=== PATIENT | female | born 1945 | race Caucasian/White ===

== ENCOUNTER 2016-12-30 06:14 | Day surgery (SDC) | payer MEDICARE, OTHER ==
[~2016-12-30] VITALS: Ht 152.4 cm; Wt 63.5 kg
[2016-12-30] VITALS (12 sets, daily range): BP systolic 126–147; BP diastolic 75–92
[~2016-12-30 06:14] MED LIST: cefOXitin 1gm/D5W 55ml IVPB ONE
[2016-12-30] MEDS ORDERED: METOPROLOL SUCC25 MG ORAL (07:17)
[2016-12-30] MEDS ORDERED: LR 1000ml 1,000 ML IVLG SCH (07:40)
--- NOTE | 2016-12-30 07:40 | Anethesia Preoperative Eval ---
Anesthesia Pre-op PMH/ROS General Date of Evaluation: Dec 30, 2016 Anesthesiologist: Skyler ASA Score: ASA 3 Mallampati Score Class I : Soft palate, uvula, fauces, pillars visible Class II: Soft palate, uvula, fauces visible Class III: Soft palate, base of uvula visible Class IV: Only hard plate visible Mallampati Classification: Class III Surgeon: Abiola Diagnosis: Postmenopausal bleeding Surgical Procedure: Hysteroscopy, D&C Anesthesia History: none Family History: no anesthesia problems Allergies: Coded Allergies: No Known Allergies (Unverified , 12/29/16) Medications: see eMAR Past Medical History Cardiovascular: Reports: HTN, Denies: CAD, [place], arrhythmia, other, valve dz Pulmonary: Reports: other - h/o left lung cancer s/p left lobectomy, Denies: COPD, DILAN, asthma Gastrointestinal/Genitourinary: Reports: GERD, other - uterine fibroids, Denies: CRI, ESRD Neurologic/Psychiatric: Denies: CVA, TIA, dementia, depression/anxiety, other Endocrine: Denies: DM, hypothyroidism, other, steroids HEENT: Reports: [place]W (L), [place] (R), Denies: cataract (L), cataract (R), glaucoma, other Hematology/Immune: Reports: other - left breast cancer s/p mastectomy, Denies: DVT, anemia, bleeding disorder Musculoskeletal/Integumentary: Reports: DJD, OA, Denies: DDD, RA, edema, other PSxH Narrative: parathyroid sx, left breast mastectomy, left lobectomy, bilateral breast implants Anesthesia Pre-op Phys. Exam Physician Exam Last Vital Signs Date Time Temp Pulse Resp B/P Pulse Ox O2 Delivery O2 Flow Rate FiO2 12/30/16 06:43 98.1 67 20 126/76 100 Room Air Constitutional: NAD Cardiovascular: RRR Respiratory: CTA Airway Exam Mallampati Score: Class III MO: limited ROM: limited Anesthesia Pre-op A/P Labs see chart Studies Pre-op Studies: EKG - sr Risk Assessment & Plan Assessment: ASA III Plan: GA Status Change Before Surgery: No Pre-Antibiotics Drug: Ancef 1g Given Within 1 Hr of Incision: Yes SAVANNAH GREENWOOD M.D. Dec 30, 2016 07:40
[2016-12-30] MEDS ORDERED: fentaNYL 100 mcg/2 mL IV PRN (07:45)
[2016-12-30] MEDS ORDERED: Propofol 10mg/ml 20ml IV ONE (07:45)
[2016-12-30] MEDS ORDERED: Lidocaine 1% MPF 10mg/ml 5ml ONE (07:45)
[2016-12-30] MEDS ORDERED: Sterile Water Irrig 1000ml IRRIG ONE (07:45)
[2016-12-30] MEDS ORDERED: Hydromorphone 0.5mg/0.5ml inj IVP PRN (07:45)
[2016-12-30] MEDS ORDERED: Dexamethasone 4mg/ml vial ONE (07:45)
[2016-12-30] MEDS ORDERED: DiphenhydrAMINE 50mg/ml Inj IVP PRN ×2 (07:45→08:00)
[2016-12-30] MEDS ORDERED: Zemuron 50mg/5ml Inj IV ONE (07:45)
[2016-12-30] MEDS ORDERED: LR 1000ml ONE (07:45)
[2016-12-30] MEDS ORDERED: fentaNYL 250mcg/5ml ONE (07:45)
[2016-12-30] MEDS ORDERED: NS Irrig 1000ml ONE (07:45)
--- NOTE | 2016-12-30 07:56 | Pre-Procedure Note/Attestation ---
Pre-Procedure Note/Attestation Complete Prior to Procedure Planned Procedure: not applicable Procedure Narrative: HYSTEROSCOPY DILATION AND CURETTAGE Indications for Procedure Pre-Operative Diagnosis: POSTMENOPAUSAL BLEEDING Attestation I attest that I discussed the nature of the procedure; its benefits; risks and complications; and alternatives (and the risks and benefits of such alternatives ), prior to the procedure, with the patient (or the patient's legal sales donor recruitment representative). I attest that, if there was a reasonable possibility of needing a blood transfusion, the patient (or the patient's legal sales donor recruitment representative) was given the [facility] standardized written summary, pursuant to the Chung [place]osh[place] Blood Safety Act ([place] Health and Safety Code # 1645, as amended). I attest that I re-evaluated the patient just prior to the surgery and that there has been no change in the patient's H&P, except as documented below: RADHA CELESTE Dec 30, 2016 07:56
[2016-12-30] MEDS ORDERED: Norco 5mg/325mg tab ORAL PRN (08:00)
[2016-12-30] MEDS ORDERED: Tylenol #3 tab (300mg/30mg) ORAL PRN (08:00)
[2016-12-30] MEDS ORDERED: D5 1/2NS 1,000 ML IV SCH (08:00)
[2016-12-30] MEDS ORDERED: HYDROmorphone 1mg/ml Carpuject SUBQ PRN (08:00)
[2016-12-30] MEDS ORDERED: Metoclopramide 10mg/2ml Inj IVP PRN (08:00)
--- NOTE | 2016-12-30 08:32 | Brief Operative Note ---
Immediate Post Operative Note Operative Note Pre-op Diagnosis: POSTMENOPAUSAL BLEEDING Procedure: dilation and hysteroscopy curettage Post-op Diagnosis: same stenotic os and atrophic endometrium Surgeon: claudio Anesthesiologist: lisa Anesthesia: general Specimen: yes Complications: none Condition: stable Estimated Blood Loss: minimal Drains: none Implant(s) used?: No RADHA CELESTE Dec 30, 2016 08:32
--- NOTE | 2016-12-30 08:50 | 48 Hour Post Anesthesia Eval ---
Post Anesthesia Evaluation Procedure: Hysteroscopy, D&C Date of Evaluation: Dec 30, 2016 Time of Evaluation: 09:40 Blood Pressure Systolic: 144 0: 82 Pulse Rate: 72 Respiratory Rate: 13 Temperature (Fahrenheit): 97.4 O2 Sat by Pulse Oximetry: 98 Airway: patent Nausea: No Vomiting: No Pain Intensity: 0 Hydration Status: adequate Cardiopulmonary Status: at baseline Mental Status/LOC: patient returned to baseline Post-Anesthesia Complications: 0 Follow-up care needed: ready to discharge SAVANNAH GREENWOOD M.D. Dec 30, 2016 08:50
--- NOTE | 2016-12-30 08:50 | Immediate Post-Op Evaluation ---
Immediate Post-Op Evalulation Immediate Post-Op Evalulation Procedure: Hysteroscopy, D&C Date of Evaluation: Dec 30, 2016 Time of Evaluation: 08:51 IV Fluids: 600 Blood Products: 0 Estimated Blood Loss: 25 Urinary Output: 0 Blood Pressure Systolic: 146 Blood Pressure Diastolic: 92 Pulse Rate: 74 Respiratory Rate: 16 O2 Sat by Pulse Oximetry: 100 Temperature (Fahrenheit): 97 Pain Score (1-10): 0 Nausea: No Vomiting: No Complications 0 Patient Status: awake, reacts, patent, none Hydration Status: adequate Drug: Ancef 1g Given Within 1 Hr of Incision: Yes Time Given: 08:05 SAVANNAH GREENWOOD M.D. Dec 30, 2016 08:50
--- NOTE | 2016-12-30 10:30 | Operative Note - Dictated ---
PREOPERATIVE DIAGNOSIS: 1. Postmenopausal bleeding. POSTOPERATIVE DIAGNOSES: 1. 2. Postmenopausal bleeding. 3. Atrophic endometrium. PROCEDURE: Dilation and curettage hysteroscopy. SURGEON: Aggie Culver M.D. SAUSAGE STUFFER: None. ANESTHESIOLOGIST: ANESTHESIA: General. PROCEDURE IN DETAIL: After ensuring informed consent, the patient was taken to the operating room, where weighted speculum was placed under vagina. Cervix was dilated and dilated. Hysteroscope was placed inside the uterine cavity, which was small, but bilateral tube ostia were observed. Endometrium appeared has atrophic. Hysteroscope was withdrawn and fractional curettage was performed. At the end of the procedure, ECC and EMC was pathology. All instruments were removed. Excellent hemostasis was assured. The patient was taken to the recovery area and extubated in stable condition. Aggie Culver M.D. DR: Jordan JOB#: [id number] CC:
== END 2016-12-30 10:35 | disposition home or self-care (01) ==
LOC: SUR 06:14
DX: N95.0 Postmenopausal bleeding (principal); N88.2 Stricture and stenosis of cervix uteri; N85.8 Other specified noninflammatory disorders of uterus; I10 Essential (primary) hypertension; K21.9 Gastro-esophageal reflux disease without esophagitis; H91.90 Unspecified hearing loss, unspecified ear; M19.90 Unspecified osteoarthritis, unspecified site; Z85.118 Personal history of other malignant neoplasm of bronchus and lung; Z85.3 Personal history of malignant neoplasm of breast; Z90.2 Acquired absence of lung [part of]; Z90.12 Acquired absence of left breast and nipple
CPT/HCPCS: 58558; J0690; J1100; J2405; J2704; J3010; J7120; 94003; 94150

== ENCOUNTER 2018-04-20 14:04 | Outpatient (CLI) | payer MEDICARE, OTHER ==
[~2018-04-20] VITALS: Ht 157.5 cm; Wt 70.3 kg
[~2018-04-20 14:04] MED LIST changes: +METOPROLOL SUCC25 MG ORAL; -cefOXitin 1gm/D5W 55ml IVPB ONE
[2018-04-20 15:21] VITALS: BP 139/62
[2018-04-20] MEDS ORDERED: DEXILANT60 MG ORAL (15:31)
--- NOTE | 2018-04-21 14:37 | GI Initial Consult Note ---
History of Present Illness General Date patient seen: Apr 21, 2018 Time patient seen: 14:29 Referring physician: ANNETTE Reason for Consultation: PANCREATIC CYST Present Illness HPI 73 year old female patient referred by Dr. Sesay for evaluation of pancreatic cyst as seen on recent imaging study. The patient presents with occasional abdominal pain, GERD, and occasional nausea without any vomiting. Denies any unintentional weight loss or changes in dietary habits. No signs of abuse or neglect. Patient is not fall risk. Stated she had EGD/colonoscopy performed by Dr. Himanshu bhakta in 2009. Home Meds Reported Medications Dexlansoprazole (Dexilant) 60 Mg Cap.bp, 60 MG ORAL DAILY, CAP 04/20/18 Metoprolol Succinate* (METOPROLOL SUCCINATE*) 25 Mg Tab.er.24h, 25 MG ORAL BID, TAB 12/30/16 Med list reviewed/reconciled: Yes Allergies: Coded Allergies: No Known Allergies (Unverified , 12/29/16) Patient History History Provided By: Patient, Medical Record PMH Narrative Lt lung CA melanoma Lt breast CA s/p surgery and chemo HTN kidney stones Past Surgical History:2009 Lt Breast CA 2018 Left lung ?lobectomy Family History Narrative Mother had both Breast and Lung CA. Social History: Denies: smoking, alcohol use, drug use, other Review of Systems All Other Systems: negative except mentioned in HPI Physical Exam Vital Signs Date Time Temp Pulse Resp B/P (MAP) Pulse Ox O2 Delivery O2 Flow Rate FiO2 04/20/18 15:21 98.1 68 16 139/62 88 Sp02 EP Interpretation: reviewed, normal General Appearance: well appearing, no apparent distress, alert Head: normocephalic EENT: PERRL/EOMI, normal ENT inspection Neck: supple Respiratory: normal breath sounds, no respiratory distress Cardiovascular: normal rate Gastrointestinal: normal inspection, non tender, soft, normal bowel sounds, non -distended Rectal: deferred Genitourinary: no CVA tenderness Musculoskeletal: normal inspection, back normal Neurologic: normal inspection, alert, oriented x3, responsive Psychiatric: normal inspection, judgement/insight normal, memory normal Skin: normal inspection, normal color, no rash, warm/dry, palpation normal, well hydrated Lymphatic: normal inspection, no adenopathy GI: Plan Problems: (1) Lung cancer (2) Breast CA (3) Melanoma (4) Kidney stone (5) Pancreatic cyst Plan EGD/EUS scheduled. - NPO @ [place] day prior procedure explained. plan for colonoscopy after EUS. Seen with Dr. Espino. Thank you for this patient referral. The patient was seen and examined at bedside and all new and available data was reviewed in the patients chart. I agree with the above findings, impression and plan. (Patient seen earlier today. Signature stamp does not reflect patient encounter time.). - MD [facility] Apr 21, 2018 14:37
== END 2018-04-20 14:34 | disposition home or self-care (01) ==
LOC: PAN 14:04
DX: K86.2 Cyst of pancreas (principal); K21.9 Gastro-esophageal reflux disease without esophagitis; R11.0 Nausea; C34.90 Malignant neoplasm of unspecified part of unspecified bronchus or lung; C50.919 Malignant neoplasm of unspecified site of unspecified female breast; C43.9 Malignant melanoma of skin, unspecified; N20.0 Calculus of kidney; I10 Essential (primary) hypertension
CPT/HCPCS: 99202

== ENCOUNTER 2018-05-05 07:14 | Day surgery (SDC) | payer MEDICARE, OTHER ==
[~2018-05-05] VITALS: Ht 157.5 cm; Wt 69.9 kg
[2018-05-05] VITALS (10 sets, daily range): BP systolic 114–137; BP diastolic 62–77
[~2018-05-05 07:14] MED LIST changes: +Atropine Inj 1mg/10ml Syr IV PRN; +DEXILANT60 MG ORAL; +DiphenhydrAMINE 50mg/ml Inj IVP PRN; +Midazolam 2mg/2ml Inj IVP PRN; +fentaNYL 100 mcg/2 mL IV PRN
--- NOTE | 2018-05-05 08:20 | Anethesia Preoperative Eval ---
Anesthesia Pre-op PMH/ROS General Date of Evaluation: May 05, 2018 Time of Evaluation: 07:53 Anesthesiologist: padmini ASA Score: ASA 3 Mallampati Score Class I : Soft palate, uvula, fauces, pillars visible Class II: Soft palate, uvula, fauces visible Class III: Soft palate, base of uvula visible Class IV: Only hard plate visible Mallampati Classification: Class III Surgeon: syeda Diagnosis: pancreatic cyst Surgical Procedure: egd/eus Anesthesia History: none Social History: smoking - nonsmoker Family History: no anesthesia problems Allergies: Coded Allergies: No Known Allergies (Unverified , 12/29/16) Medications: see eMAR Patient NPO?: Yes Past Medical History Cardiovascular: Reports: HTN Pulmonary: Reports: other - cancer Gastrointestinal/Genitourinary: Reports: GERD, other - pancreatic cyst HEENT: Reports: other - decreased hearing acuity Hematology/Immune: Reports: other - breast cancer Musculoskeletal/Integumentary: Reports: OA, other - melanoma PSxH Narrative: left lung lobectomy Anesthesia Pre-op Phys. Exam Physician Exam Last Vital Signs Date Time Temp Pulse Resp B/P (MAP) Pulse Ox O2 Delivery O2 Flow Rate FiO2 05/05/18 07:54 Room Air 05/05/18 07:50 97.9 65 18 118/75 100 Constitutional: NAD Neurologic: CN 2-12 intact, other - decreased hearing acuity Cardiovascular: RRR Respiratory: CTA Gastrointestinal: S/NT/ND Airway Exam Mallampati Score: Class II MO: full Neck: supple TMD: 2fb ROM: full Anesthesia Pre-op A/P Risk Assessment & Plan Assessment: asa3 Plan: mac Status Change Before Surgery: No Pre-Antibiotics Drug: Eloisa De Leon MD May 05, 2018 08:20
--- NOTE | 2018-05-05 08:40 | Short Stay Surgery H&P ---
History of Present Illness History of Present Illness Chief Complaint see recent office note HPI Edilberto Schroeder is a 73 year old female who was admitted on for PAIN Patient History Allergies: Coded Allergies: No Known Allergies (Unverified , 12/29/16) Medication History Scheduled Dexlansoprazole (Dexilant), 60 MG ORAL DAILY, (Reported) Metoprolol Succinate* (Metoprolol Succinate*), 25 MG ORAL BID, (Reported) Physical Exam Vital Signs Last Vital Signs Date Time Temp Pulse Resp B/P (MAP) Pulse Ox O2 Delivery O2 Flow Rate FiO2 05/05/18 07:54 Room Air 05/05/18 07:50 97.9 65 18 118/75 100 Plan Attestation Are the patient's medical conditions optimized for surgery? Kristopher Espino MD May 05, 2018 08:40
--- NOTE | 2018-05-05 08:40 | Pre-Procedure Note/Attestation ---
Pre-Procedure Note/Attestation Complete Prior to Procedure Planned Procedure: not applicable Procedure Narrative: egd/EUS Indications for Procedure Pre-Operative Diagnosis: pancreatic cyst Attestation I attest that I discussed the nature of the procedure; its benefits; risks and complications; and alternatives (and the risks and benefits of such alternatives ), prior to the procedure, with the patient (or the patient's legal patient access representative). I attest that, if there was a reasonable possibility of needing a blood transfusion, the patient (or the patient's legal patient access representative) was given the [facility] standardized written summary, pursuant to the [place]ung [place]osh[place] Blood Safety Act ([place] Health and Safety Code # 1645, as amended). I attest that I re-evaluated the patient just prior to the surgery and that there has been no change in the patient's H&P, except as documented below: Kristopher Espino MD May 05, 2018 08:40
--- NOTE | 2018-05-05 09:31 | Endoscopy Procedure Note ---
Endoscopy Procedure Note General Indication for Procedure: pancreatic cyst Procedures Performed: EGD, other - EUS Operative Findings/Diagnosis: same Specimen: yes Pt Tolerated Procedure Well: Yes Estimated Blood Loss: none Anesthesia Anesthesiologist: nidhi Anesthesia: MAC Inserted Devices Implant(s) used?: No GI Core Measures 50 yrs or older w/o bx or poly: Not Applicable 10yrs. F/U not recommended: Not Applicable Kristopher Espino MD May 05, 2018 09:30
--- NOTE | 2018-05-05 09:46 | Immediate Post-Op Evaluation ---
Immediate Post-Op Evalulation Immediate Post-Op Evalulation Procedure: egd/eus Date of Evaluation: May 05, 2018 Time of Evaluation: 09:35 IV Fluids: 450ml 0.9ns Blood Products: none Estimated Blood Loss: negligible Blood Pressure Systolic: 121 Blood Pressure Diastolic: 62 Pulse Rate: 63 Respiratory Rate: 18 O2 Sat by Pulse Oximetry: 100 Temperature (Fahrenheit): 97.6 Pain Score (1-10): 0 Nausea: No Vomiting: No Complications none Patient Status: awake, reacts, patent Hydration Status: adequate Drug: Eloisa De Leon MD May 05, 2018 09:46
--- NOTE | 2018-05-05 09:48 | 48 Hour Post Anesthesia Eval ---
Post Anesthesia Evaluation Procedure: egd/eus Date of Evaluation: May 05, 2018 Time of Evaluation: 09:37 Blood Pressure Systolic: 120 0: 62 Pulse Rate: 65 Respiratory Rate: 18 Temperature (Fahrenheit): 97.6 O2 Sat by Pulse Oximetry: 100 Airway: patent Nausea: No Vomiting: No Pain Intensity: 0 Hydration Status: adequate Cardiopulmonary Status: stable Mental Status/LOC: patient returned to baseline Post-Anesthesia Complications: none Follow-up care needed: N/A Eloisa Navarro MD May 05, 2018 09:47
[2018-05-05 10:33] LABS: BASOPHILS % (AUTO) 0.6 % (0.0-2.0); EOSINOPHILS % (AUTO) 2.3 % (0.0-3.0); HEMATOCRIT 40.6 % (37.0-47.0); HEMOGLOBIN 13.7 G/DL (12.0-16.0); LYMPHOCYTES % (AUTO) 33.2 % (20.0-45.0); MEAN CORPUSCULAR VOLUME 90 FL (80-99); MONOCYTES % (AUTO) 11.1 % (1.0-10.0); NEUTROPHILS % (AUTO) 52.8 % (45.0-75.0); PLATELET COUNT 245 K/UL (150-450); RED CELL DISTRIBUTION WIDTH 11.6 % (11.6-14.8); WHITE BLOOD COUNT 5.8 K/UL (4.8-10.8)
[2018-05-05 10:48] LABS: ALANINE AMINOTRANSFERASE 20 U/L (12-78); ALBUMIN 3.3 G/DL (3.4-5.0); ALBUMIN/GLOBULIN RATIO 0.8 (1.0-2.7); ALKALINE PHOSPHATASE 92 U/L (46-116); AMYLASE 47 U/L (25-115); ANION GAP 5 mmol/L (5-15); ASPARTATE AMINO TRANSFERASE 18 U/L (15-37); BILIRUBIN,TOTAL 0.4 MG/DL (0.2-1.0); BLOOD UREA NITROGEN 19 mg/dL (7-18); CALCIUM 8.9 MG/DL (8.5-10.1); CARBON DIOXIDE 30 MMOL/L (21-32); CHLORIDE 107 MMOL/L (98-107); CREATININE 0.6 MG/DL (0.55-1.30); POTASSIUM 3.4 MMOL/L (3.5-5.1); SODIUM 142 MMOL/L (136-145)
--- NOTE | 2018-05-05 17:32 | Procedure Note ---
DATE OF PROCEDURE: 05/05/2018 SURGEON: Kristopher Espino M.D. PROCEDURE: Upper endoscopy with biopsy and endoscopic ultrasound. ANESTHESIOLOGIST: Eloisa Goncalves M.D. INSTRUMENT: Olympus adult flexible upper endoscope. INDICATION: Pancreatic cyst. REASON FOR PROCEDURE: The procedure, risks, benefits, and possible consequences, including hemorrhage, aspiration, perforation and infection, and alternative treatments, were explained to the patient/legal guardian by Dr. Kristopher Espino and the patient/legal guardian understood and accepted these risks. DESCRIPTION OF PROCEDURE: After informed consent was obtained and the patient was adequately sedated, Olympus upper endoscope was advanced from mouth into the second portion of the duodenum and retroflexion was performed in the stomach. The patient had evidence of medium-sized hiatal hernia without any obvious esophagitis or esophageal ulceration. In the stomach, there was diffuse gastritis. Random biopsy from antrum was obtained to rule out H. pylori infection. At this time, the upper endoscope was retrieved and EUS scope was introduced. Starting scanning at the GE junction first, celiac axis was seen without any obvious celiac axis lymphadenopathy. The patient had multiple cysts in the pancreatic body and tail that was not seen on the CAT scan. There was about 4 mm cyst arising from the main pancreatic duct suspicious for IPMN. There was a little bit larger cyst measured roughly about 7.8 mm in the tail of the pancreas. This one looks like a simple looking cyst, did not obviously looked connected to the pancreatic duct. There was another complex cyst in the body of the pancreas. This one measured roughly about 8 mm, had some septations. The pancreatic duct looked normal in caliber and the body and tail measured roughly about 1.4 mm. Then, the scope was advanced to the duodenal bulb and second portion of the duodenum and pancreatic head and uncinate process were examined. Common bile duct was seen without any obvious stone. Common bile duct measured roughly about 4 mm. Gallbladder was seen without any obvious stone. We were able to pass the scope once into the second portion of duodenum to evaluate the uncinate process. Ampulla was fine. No obvious pancreatic duct or common bile duct dilation in the ampulla. The cystic lesion, which was seen on the CT in the uncinate process was not clearly seen. We tried to go back multiple times and every time we put the scope into the duodenal bulb, the patient become bradycardic requiring atropine. So, we decided not to pursue at this time. SUMMARY OF FINDINGS: 1. Medium-sized hiatal hernia. 2. Gastritis, status post biopsy. 3. At least 3 pancreatic cysts in the body and tail. See above for details. 4. Normal pancreatic duct and common bile duct calibration. 5. Normal gallbladder. 6. Limited evaluation of uncinate process given that every time we put the scope in the duodenum, the patient become bradycardic. RECOMMENDATIONS: Given there is significant difference between CT findings and the EUS findings, we recommend an MRCP to better see this cyst. Of course, this cyst needs to get followup especially the complex cyst in the body of the pancreas that measured about 8 mm. I will recommend an MRCP and based on the MRCP, we will recommend timing for this future EUS. I want to thank Dr. Parul Sesay, for this kind referral. Kristopher Espino M.D. DR: CELY JOB#: [id number] CC: Parul Sesay M.D.; Fax#: [phone]
--- NOTE | 2018-05-06 15:14 | Cardiology Report ---
APPROVED REPORT EKG Measurement Heart [id number] NV [id number] Normal sinus rhythm Low voltage QRS Borderline ECG
== END 2018-05-05 11:05 | disposition home or self-care (01) ==
LOC: GAS 07:14
DX: K86.2 Cyst of pancreas (principal); K29.50 Unspecified chronic gastritis without bleeding; K44.9 Diaphragmatic hernia without obstruction or gangrene; I10 Essential (primary) hypertension; K21.9 Gastro-esophageal reflux disease without esophagitis; Z85.3 Personal history of malignant neoplasm of breast; Z85.820 Personal history of malignant melanoma of skin; Z90.2 Acquired absence of lung [part of]
CPT/HCPCS: 36415; 43237; 80053; 82150; 82378; 83690; 85025; 93005; J3010; 94003; 94150

== ENCOUNTER 2018-05-15 14:20 | Outpatient (CLI) | payer MEDICARE, OTHER ==
[~2018-05-15 14:20] MED LIST changes: -Atropine Inj 1mg/10ml Syr IV PRN; -DiphenhydrAMINE 50mg/ml Inj IVP PRN; -Midazolam 2mg/2ml Inj IVP PRN; -fentaNYL 100 mcg/2 mL IV PRN
--- NOTE | 2018-05-15 15:41 | GI Progress Note ---
Assessment/Plan Problems: (1) Breast CA ICD Codes: C50.919 - Malignant neoplasm of unspecified site of unspecified female breast SNOMED: 160161300 (2) Pancreatic cyst ICD Codes: K86.2 - Cyst of pancreas SNOMED: 61623156 (3) Melanoma ICD Codes: C43.9 - Malignant melanoma of skin, unspecified SNOMED: 925311471 Status: stable Status Narrative Seen with Dr. Espino. Assessment/Plan SUMMARY OF FINDINGS: 1. Medium-sized hiatal hernia. 2. Gastritis, status post biopsy. 3. At least 3 pancreatic cysts in the body and tail. See above for details. 4. Normal pancreatic duct and common bile duct calibration. 5. Normal gallbladder. 6. Limited evaluation of uncinate process given that every time we put the scope in the duodenum, the patient become bradycardic. RECOMMENDATIONS: MRCP ordered RTC after imaging study will follow with additional recs The patient was seen and examined at bedside and all new and available data was reviewed in the patients chart. I agree with the above findings, impression and plan. (Patient seen earlier today. Signature stamp does not reflect patient encounter time.). - Kristopher Espino MD Subjective Gastrointestinal/Abdominal: Reports: no symptoms Objective General Appearance: WD/WN, no apparent distress, alert Cardiovascular: normal rate Respiratory/Chest: normal breath sounds, no respiratory distress Abdominal Exam: normal bowel sounds, non tender, soft Extremities: normal range of motion, non-tender Dianelys Townsend NP May 15, 2018 15:41
== END 2018-05-15 14:50 | disposition home or self-care (01) ==
LOC: PAN 14:20
DX: C50.919 Malignant neoplasm of unspecified site of unspecified female breast (principal); K86.2 Cyst of pancreas; C43.9 Malignant melanoma of skin, unspecified; K44.9 Diaphragmatic hernia without obstruction or gangrene; K29.70 Gastritis, unspecified, without bleeding
CPT/HCPCS: G0463

== ENCOUNTER 2018-07-10 13:00 | Outpatient (CLI) | payer MEDICARE, OTHER ==
[2018-07-10 14:56] VITALS: BP 137/82
--- NOTE | 2018-07-11 10:49 | GI Progress Note ---
Assessment/Plan Problems: (1) GERD (gastroesophageal reflux disease) ICD Codes: K21.9 - Gastro-esophageal reflux disease without esophagitis SNOMED: 733839760 (2) Abdominal pain ICD Codes: R10.9 - Unspecified abdominal pain SNOMED: 82096615 (3) Pancreatic cyst ICD Codes: K86.2 - Cyst of pancreas SNOMED: 59839486 Status: stable Status Narrative Seen with Dr. Espino. Assessment/Plan MRCP results reviewed with patient Continue Dexilant and creatinine Referred to Dr. Gonzalez RTC x 3 months The patient was seen and examined at bedside and all new and available data was reviewed in the patients chart. I agree with the above findings, impression and plan. (Patient seen earlier today. Signature stamp does not reflect patient encounter time.). - Kristopher Espino MD Subjective Subjective Status post MRCP at [facility] Abdominal pain, mainly epigastric GERD, taking Dexilant Objective temperature 98.1 Blood pressure 137/82 64 heart rate 97% room air General Appearance: WD/WN, no apparent distress, alert Cardiovascular: normal rate Respiratory/Chest: normal breath sounds, no respiratory distress Abdominal Exam: normal bowel sounds, non tender, soft Extremities: normal range of motion, non-tender Dianelys Townsend NP Jul 11, 2018 10:49
[2018-07-11] MEDS ORDERED: CREON DR 24,001 EACH PO (14:59)
== END 2018-07-10 13:30 | disposition home or self-care (01) ==
LOC: PAN 13:00
DX: K21.9 Gastro-esophageal reflux disease without esophagitis (principal); K86.2 Cyst of pancreas
CPT/HCPCS: 99212

== ENCOUNTER 2018-08-07 14:00 | Outpatient (CLI) | payer MEDICARE, OTHER ==
[~2018-08-07 14:00] MED LIST changes: +CREON DR 24,001 EACH PO
--- NOTE | 2018-08-07 15:11 | GI Progress Note ---
Assessment/Plan Problems: (1) Abdominal pain ICD Codes: R10.9 - Unspecified abdominal pain SNOMED: 58917889 (2) GERD (gastroesophageal reflux disease) ICD Codes: K21.9 - Gastro-esophageal reflux disease without esophagitis SNOMED: 431259485 (3) Pancreatic cyst ICD Codes: K86.2 - Cyst of pancreas SNOMED: 21291892 (4) Melanoma ICD Codes: C43.9 - Malignant melanoma of skin, unspecified SNOMED: 833165088 Status: stable Status Narrative Seen with Dr. Espino. Assessment/Plan DC Dexilant Rx omeprazole Continue PPI Add Carafate 1 g 3 times daily Return to clinic in 1 month The patient was seen and examined at bedside and all new and available data was reviewed in the patients chart. I agree with the above findings, impression and plan. (Patient seen earlier today. Signature stamp does not reflect patient encounter time.). - Kristopher Espino MD Subjective Subjective Patient has complaint of abdominal pain, substernal pain Objective Temperature 98.9 Blood pressure 118/74 Pulse 65 96% room air General Appearance: WD/WN, no apparent distress, alert Cardiovascular: normal rate Respiratory/Chest: normal breath sounds, no respiratory distress Abdominal Exam: normal bowel sounds, non tender, soft Extremities: normal range of motion, non-tender Dianelys Townsend NP Aug 07, 2018 15:11
[2018-08-08 08:30] VITALS: BP 118/74
== END 2018-08-07 14:30 | disposition home or self-care (01) ==
LOC: PAN 14:00
DX: R10.9 Unspecified abdominal pain (principal); K21.9 Gastro-esophageal reflux disease without esophagitis; K86.2 Cyst of pancreas; C43.9 Malignant melanoma of skin, unspecified
CPT/HCPCS: 99212

== ENCOUNTER 2019-01-18 14:04 | Outpatient (CLI) | payer MEDICARE, OTHER ==
[2019-01-18 14:30] VITALS: BP 127/74
--- NOTE | 2019-02-09 09:51 | General Progress Note ---
Assessment/Plan Assessment/Plan: (1) Abdominal pain ICD Codes: R10.9 - Unspecified abdominal pain SNOMED: 95733160 (2) GERD (gastroesophageal reflux disease) ICD Codes: K21.9 - Gastro-esophageal reflux disease without esophagitis SNOMED: 598073633 (3) Pancreatic cyst ICD Codes: K86.2 - Cyst of pancreas SNOMED: 73502481 (4) Melanoma ICD Codes: C43.9 - Malignant melanoma of skin, unspecified SNOMED: 726522628 Status: stable Status Narrative. Assessment/Plan Continue PPI Carafate 1 g 3 times daily creon has been seen by Dr Gonzalez for pancreatic cyst stable in size fu PET scan Return to clinic in 1 month Subjective ROS Limited/Unobtainable: Yes Allergies: Coded Allergies: No Known Allergies (Unverified , 12/29/16) Objective General Appearance: alert EENT: normal ENT inspection Neck: supple Cardiovascular: normal rate Respiratory/Chest: decreased breath sounds Abdomen: normal bowel sounds, non tender, soft Extremities: non-tender Kristopher Espino MD Feb 09, 2019 09:51
== END 2019-01-18 15:41 | disposition home or self-care (01) ==
LOC: PAN 14:04
DX: R10.9 Unspecified abdominal pain (principal); K21.9 Gastro-esophageal reflux disease without esophagitis; K86.2 Cyst of pancreas; C43.9 Malignant melanoma of skin, unspecified
CPT/HCPCS: 99212